=== PATIENT | male | born 1955 | race Caucasian/White ===

== ENCOUNTER → 2021-05-25 | Outpatient (CLI) | payer OTHER ==
--- NOTE | 2021-05-25 14:17 | XR ---
EXAMINATION TYPE: XR hand complete LT DATE OF EXAM: 05/25/2021 COMPARISON: None HISTORY: Screw and into plantar surface fourth fifth metacarpal joints TECHNIQUE: 3 view left hand FINDINGS: No acute fractures are evident. Soft tissues appear normal. No radiopaque foreign bodies ar e evident. Joint spaces are preserved. Follow up exams can be performed 7-10 days from acute trauma f or continued pain. IMPRESSION: 1. No acute osseous abnormality. 2. No radiopaque foreign bodies.
== END | disposition home or self-care (01) ==
LOC: RADXRMAIN 14:00
PROVIDERS: ATTEND Emergency Medicine
DX: Z03.89 Encounter for observation for other suspected diseases and conditions ruled out (principal)

== ENCOUNTER → 2025-04-27 | Outpatient (CLI) | payer BC ==
--- NOTE | 2025-04-27 11:29 | XR ---
EXAMINATION TYPE: XR chest 2V DATE OF EXAM: 04/27/2025 11:09 AM COMPARISON: Chest radiographs from 11/19/2012. CLINICAL INDICATION: Male, 69 years old with history of Z01.818 PRE SURGICAL; pain TECHNIQUE: XR chest 2V Frontal and lateral views of the chest. FINDINGS: Lungs/Pleura: There is no evidence of pleural effusion, focal consolidation, or pneumothorax. Pulmonary vascularity: Unremarkable. Heart/mediastinum: Cardiomediastinal silhouette is unremarkable. Musculoskeletal: No acute osseous pathology. IMPRESSION: No acute cardiopulmonary disease/process. [facility], , 04/27/2025 11:27 AM
[2025-04-27 15:27] LABS: ALT 19 U/L (10-49); AST 20 U/L (14-35); Albumin 4.5 g/dL (3.8-4.9); Albumin/Globulin Ratio 2.25 Ratio (1.60-3.17); Alkaline Phosphatase 93 U/L (41-126); Anion Gap 12.60 mmol/L (4.00-12.00); BUN/Creat Ratio 11.00 Ratio (12.00-20.00); Blood Urea Nitrogen 11.0 mg/dL (9.0-27.0); Calcium 9.5 mg/dL (8.7-10.3); Carbon Dioxide 25.4 mmol/L (21.6-31.8); Chloride 104 mmol/L (96-109); Cholesterol 215.00 mg/dL (0.00-200.00); Globulin 2.0 g/dL (1.6-3.3); Glucose 108 mg/dL (70-110); HDL Cholesterol 45.00 mg/dL (40.00-60.00); LDL Cholesterol,Calculated 132.8 mg/dL (0.0-131.0); Potassium 4.7 mmol/L (3.5-5.5); Prostate Specific Antigen 6.18 ng/mL (0.000-4.500); Sodium 142 mmol/L (135-145); Total Protein 6.5 g/dL (6.2-8.2); Triglycerides 186.00 mg/dL (0.00-149.00); VLDL Calculation 37.20 mg/dL (5.00-40.00)
[2025-04-27 16:05] LABS: Basophils # (A) 0.10 X 10*3/uL (0.00-0.10); Basophils % (A) 1.1 %; Eosinophils # (A) 0.27 X 10*3/uL (0.04-0.35); Eosinophils % (A) 3.0 %; HCT 45.5 % (39.6-50.0); HGB 14.9 g/dL (13.0-17.0); Immature Grans, Automated 0.70 %; Lymphocytes # (A) 2.38 X 10*3/uL (0.90-5.00); Lymphocytes % (A) 26.9 %; MCH 30.9 pg (27.0-32.0); MCHC 32.7 g/dL (32.0-37.0); MCV 94.4 FL (80.0-97.0); Monocytes # (A) 0.79 X 10*3/uL (0.20-1.00); Monocytes % (A) 8.9 %; NRBC Per 100 WBC 0 X 10*3/uL (0.00-0.01); Neutrophils # (A) 5.26 X 10*3/uL (1.80-7.70); Neutrophils % (A) 59.4 %; Platelet Count 340 X 10*3/uL (140-440); RBC 4.82 X 10*6/uL (4.40-5.60); RDW 12.2 % (11.5-14.5); WBC 8.86 X 10*3/uL (4.50-10.00)
[2025-04-27 16:24] LABS: Bilirubin,Urine Negative (Negative); Blood,Urine Negative (Negative); Color,Urine Yellow (Yellow); Ketones,Urine Trace (Negative); Nitrite,Urine Negative (Negative); PH, Urine 7.5; Specific Gravity,Urine 1.019 (1.001-1.030); Urobilinogen,Urine 1.0 E.U./DL
[2025-04-27 16:30] LABS: Bacteria,Urine None Seen (None Seen)
== END | disposition home or self-care (01) ==
LOC: LABWHC1 10:11
PROVIDERS: ATTEND Urology
DX: Z01.818 Encounter for other preprocedural examination (principal); D41.01 Neoplasm of uncertain behavior of right kidney; I49.8 Other specified cardiac arrhythmias; N40.0 Benign prostatic hyperplasia without lower urinary tract symptoms; R73.9 Hyperglycemia, unspecified
CPT/HCPCS: 36415; 71046; 80053; 80061; 81001; 83036; 84153; 84443; 85025; 87086; 93005

== ENCOUNTER → 2025-05-01 | Outpatient (CLI) | payer BC, MEDICARE | END | disposition home or self-care (01) | LOC: LABPAT 10:29 | PROVIDERS: ATTEND Urology | DX: Z01.812 Encounter for preprocedural laboratory examination (principal) | CPT/HCPCS: 86850; 86900; 86901 ==

== ENCOUNTER 2025-05-07 10:09 | Day surgery (SDC) | payer MEDICARE ==
[2025-04-30 15:57] VITALS: BMI 31.9
--- NOTE | 2025-05-07 07:58 | P.HPIHPCON ---
History of Present Illness H&P Date: 05/07/25 Chief Complaint: Right renal mass This is a 69-year-old male with incidental finding of a 3.5 cm right-sided midpole renal mass. Option of robotic partial nephrectomy versus cryoablation versus observation was discussed with him in details. He agreed to proceed with a robotic partial nephrectomy. He is aware of the risk which include but not limited to bleeding, infection, injury to nearby organs. Discussed also the potential of converting to radical nephrectomy. Discussed with him that if this does occur then he is at a higher risk of needing hemodialysis in the short and long-term. Risk of cancer recurrence and the need for additional treatment was also discussed. He understood all the risk and agreed to proceed Consent for Procedure: I have explained the operation/procedure to the patient, including the risks, benefits, side effects, alternative therapies (including not receiving the proposed treatment or service), the likelihood of the patient achieving his/her goals, and potential recuperation problems for the procedure/sedation/analgesia, as well as any blood products, if indicated. I also explained to the patient the risks, benefits and side effects of the alternatives, as well as the risks related to not receiving the proposed procedure, care, treatment, or services. Past Medical History Past Medical History: Asthma, Hyperlipidemia, Hypertension, Prostate Disorder, Sleep Apnea/CPAP/BIPAP Additional Past Medical History / Comment(s): Allergies. Hx vertigo. Lott's Esophagus. "Cholesterol levels good now." Enlarged prostate. No device use for sleep apnea since septal/nasal surgery. History of Any Multi-Drug Resistant Organisms: None Reported Past Surgical History: Cholecystectomy, Hernia Repair, Orthopedic Surgery, Tonsillectomy Additional Past Surgical History / Comment(s): Adina Fundoplication, nasal septum surgery, bilateral cataract surgery, right knee arthroscopy X2. Past Anesthesia/Blood Transfusion Reactions: No Reported Reaction Additional Past Anesthesia/Blood Transfusion Reaction / Comment(s): Spouse states "Takes a lot of anesthesia to keep him out." Hx Vertigo. Smoking Status: Current every day smoker - Past Family History Father Family Medical History: Cancer Additional Family Medical History / Comment(s): Prostate cancer. Mother Family Medical History: Cancer Additional Family Medical History / Comment(s): Melanoma and colon cancer. Medications and Allergies Home Medications Medication Instructions Recorded Confirmed Type ALPRAZolam [Xanax] 0.5 mg PO BID PRN 07/10/25 07/10/25 History Albuterol Sulfate [Proair 2 puff INHALATION Q4-6H PRN 04/30/25 04/30/25 History Digihaler] Amlodipine Besylate/Valsartan 1 each PO BID 04/30/25 04/30/25 History [Amlodipine Besylate/Valsartan 5-320 mg] Budesonide/Formoterol Fumarate 1 puff INHALATION BID 04/30/25 04/30/25 History [Breyna 160-4.5 Mcg Inhaler] Cetirizine HCl [Zyrtec] 10 mg PO HS 04/30/25 04/30/25 History Meclizine [Antivert] 25 mg PO TID PRN 04/30/25 04/30/25 History Omeprazole 20 mg PO QAM 04/30/25 04/30/25 History buPROPion HCL [buPROPion HCL SR] 150 mg PO BID 04/30/25 04/30/25 History tadalafiL 5 mg PO HS 04/30/25 04/30/25 History Allergies Allergy/AdvReac Type Severity Reaction Status Date / Time bee venom protein (honey bee) Allergy Anaphylaxis Verified 04/30/25 15:24 Milk Containing Products Allergy Sinus Verified 04/30/25 15:24 (Dairy) problems [Dairy] Penicillins Allergy Rash/Hives Verified 04/30/25 15:24 Surgical - Exam - General no distress, no pain - Eyes normal ocular movement, no pale - ENT normal nares, normal mucosa - Respiratory normal expansion, normal respiratory effort - Abdomen Abdomen: soft, non tender, no distended - Psychiatric oriented to time, oriented to person, oriented to place Assessment and Plan Assessment: OR for robotic partial nephrectomy on the right side possible radical
[2025-05-07] MEDS: ONDANSETRON 4 MG/2 ML VIAL IVP ONE (11:08)
[2025-05-07] MEDS: DEXAMETHASONE SOD PHOSPHATE 4 MG/ML 1 ML VIAL IV ONE (11:08)
[2025-05-07] MEDS: LACTATED RINGERS 1,000 ML IV SCH (11:08)
[2025-05-07] MEDS: IV FLUID CONTINUATION 1,000 ML IV ONE ×2 (11:26→11:27)
[2025-05-07] MEDS: MIDAZOLAM 2 MG/2 ML VIAL IV ONE (11:40)
[2025-05-07] MEDS: HEPARIN SODIUM,PORCINE 5,000 UNIT/ML 1 ML VIAL SQ PRN (11:45)
[2025-05-07] MEDS: fentaNYL (PF) 50 MCG/ML 2 ML AMP IVP PRN (11:51)
[2025-05-07] MEDS ORDERED: GLYCOPYRROLATE 0.2 MG/ML 2 ML VIAL ONE (12:57)
[2025-05-07] MEDS ORDERED: ROPIVACAINE 5 MG/ML 30 ML VIAL ONE (12:57)
[2025-05-07] MEDS ORDERED: MANNITOL 25% 12.5 GM/50 ML VIAL ONE (12:57)
[2025-05-07] MEDS ORDERED: ePHEDrine 50 MG/ML 1 ML VIAL ONE (12:57)
[2025-05-07] MEDS ORDERED: DEXAMETHASONE SOD PHOSPHATE 4 MG/ML 1 ML VIAL ONE (12:57)
[2025-05-07] MEDS ORDERED: PROPOFOL 10 MG/ML 20 ML VIAL IV ONE (12:57)
[2025-05-07] MEDS ORDERED: KETAMINE HCL IN 0.9 % NACL 50 MG/5 ML SYRINGE ONE (12:57)
[2025-05-07] MEDS ORDERED: LIDOCAINE 1% INJ 10MG/ML (20 ML MDV) ONE (12:57)
[2025-05-07] MEDS ORDERED: PHENYLEPHRINE 10 MG/ML VIAL ONE (12:57)
[2025-05-07] MEDS ORDERED: NEOSTIGMINE 1 MG/ML 10 ML VIAL ONE (12:57)
[2025-05-07] MEDS ORDERED: SODIUM CHLORIDE 0.9% (PF) 10 ML VIAL ONE (12:57)
[2025-05-07] MEDS ORDERED: fentaNYL (PF) 50 MCG/ML 2 ML AMP ONE (12:57)
[2025-05-07] MEDS ORDERED: MIDAZOLAM 2 MG/2 ML VIAL ONE (12:57)
[2025-05-07] MEDS ORDERED: ROCURONIUM 10 MG/ML (5 ML VIAL) IV ONE (12:57)
[2025-05-07] MEDS ORDERED: HYDROmorphone (PF) 1 MG/ML ONE (12:57)
--- NOTE | 2025-05-07 13:02 | P.ANPRN ---
Procedure Note - Anesthesia - Nerve Block Performed Right Erector Spinae Single Time Out Performed: Yes ([id number]) Date of Procedure: 05/07/25 Procedure Start Time: 11:41 Procedure Stop Time: 11:46 Location of Patient: PreOp Indication: Acute Post-Operative Pain, Requested by Surgeon Sedation Type: Sedate with meaningful contact maintained Preparation: Sterile Prep Position: Sitting Catheter: None Needle Types: Pajunk Needle Gauge: 21 Ultrasound used to visualize needle placement: Yes Ultrasound used to observe medication spread: Yes Injectate: 0.5% Ropivacaine (see comment for volume) (25 mL of block solution containing 14 mL of 0.5% ropivacaine mixed with 10 mL of preservative-free normal saline, and 4 mg of dexamethasone) Blood Aspirated: No Pain Paresthesia on Injection Noted: No Resistance on Injection: Normal Image Stored and Saved: Yes Events: Uneventful and Well Tolerated
[2025-05-07] MEDS ORDERED: ALPRAZolam 0.5 MG TAB PO PRN (13:13)
[2025-05-07] MEDS ORDERED: ALBUTEROL NEBULIZED 2.5 MG/3 ML INHALATION PRN (13:13)
[2025-05-07] MEDS ORDERED: MECLIZINE 25 MG TAB PO PRN (13:13)
[2025-05-07] MEDS ORDERED: ONDANSETRON 4 MG/2 ML VIAL IVP PRN (13:14)
[2025-05-07] MEDS ORDERED: HYDROmorphone 1 MG/ML 1 ML SYRINGE IVP PRN (13:14)
[2025-05-07] MEDS: LACTATED RINGERS 1,000 ML IV ONE ×2 (14:05→16:29)
[2025-05-07] MEDS: BUPIVACAINE (PF) 0.5% 30 ML VIAL SQ ONE ×2 (14:14→18:22)
--- NOTE | 2025-05-07 18:31 | P.OP ---
Date of Procedure: 05/07/25 Preoperative Diagnosis: Right renal mass Postoperative Diagnosis: Same Procedure(s) Performed: Robotic assisted laparoscopic partial nephrectomy on the right Implants: None Anesthesia: LILLYA Surgeon: Isaias Gallegos Estimated Blood Loss (ml): 200 Pathology: other (Right renal mass) Condition: stable Disposition: PACU Indications for Procedure: This is a 69-year-old male with incidental finding of a 3.5 cm right-sided midpole renal mass. Option of robotic partial nephrectomy versus cryoablation versus observation was discussed with him in details. He agreed to proceed with a robotic partial nephrectomy. He is aware of the risk which include but not limited to bleeding, infection, injury to nearby organs. Discussed also the potential of converting to radical nephrectomy. Discussed with him that if this does occur then he is at a higher risk of needing hemodialysis in the short and long-term. Risk of cancer recurrence and the need for additional treatment was also discussed. He understood all the risk and agreed to proceed Description of Procedure: The patient was taken to the operating room . General anesthesia was induced. He was prepped and draped in sterile fashion, and was placed in modified flank posi tion . All pressure points were padded. The abdominal insufflation was achieved with the Veress needle. A 8 mm camera port was placed. Robotic trocars and furniture removalist's assistant ports were placed under direct vision. a 5 mm liver retractor was placed. . The robot was docked into place. The colon was mobilized medially by incising along the white line of Toldt. Next the duodenum was kocherized. Once the bowel, was mobilized. At this time the gonadal vessel was visualized. Once the gonadal vessel and ureter was visualized , next after the psoas plane was developed the ureter and gonadal vessel was retracted anteriorly off the psoas muscle. Dissection proceeded cranially towards the renal hilum.The renal vessels were dissected. Patient had a small lower pole renal vein, I did have to ligate the vein using robotic clip audit practice intern as I was unable to further dissect the hilum without doing that. The renal artery and the vein was dissected in preparation for clamping. Next attention was carried to the tumor, the area around the tumor patient had significant amount of fat around the kidney, in addition was fairly toxic fat as it was fairly adherent to the renal capsule, I very slowly was able to dissect the fat off, more than 2 hours were spent in order to partially defat the kidney to be able to visualize the tumor and the margins around it. Manitol was administered. The renal artery was clamped using 2 bulldogs. After clamping the renal artery the tumor was excised sharply with adequate margin, and cautery was used in areas of bleeding. Of note the fat over the tumor was sent as a separate specimen fat over tumor. Next the defect was closed in 2 layers using 3-0V lock for the inner layer, 20V lock in interrupted fashion for the outer layer. Sliding clip technique was used. Next the clamps were removed, there was no evidence of bleeding from the defect. Hemostatic agents were applied The kidney tumor was placed in an Endo Catch bag. Gerota's fascia was closed over the tumor defect. A WENDIE drain was placed through the lower robotic trocor incision. The robot was then de-docked and the specimen was then removed by extending the furniture removalist's assistant port. Fascia was closed with one layer using 2-0 Vicryl. Skin was closed with subcuticular sutures and dermabond. The patient was awoken from general anesthesia in stable condition. all counts were correct Please refer to the final pathology report for final diagnosis
[2025-05-07] MEDS: HYDROmorphone 0.5 MG/0.5 ML SYRINGE IVP PRN (20:01)
[2025-05-07] MEDS: SYMBICORT 160-4.5 MCG INHALER INHALATION SCH (20:08)
[2025-05-07 20:32] VITALS: RESP 16
[2025-05-07] MEDS: KETOROLAC 15 MG/ML 1 ML VIAL IVP SCH (20:36)
[2025-05-07] MEDS ORDERED: amLODIPine 5 MG TAB PO SCH (21:00)
[2025-05-07] MEDS: D5-0.45% NACL WITH KCL 20MEQ/L 1,000 ML IV SCH (21:58)
[2025-05-07] MEDS: amLODIPine 5 MG TAB PO SCH (21:59)
[2025-05-07] MEDS: LORATADINE 10 MG TAB PO SCH (21:59)
[2025-05-07] MEDS: buPROPion SR 150 MG TABLET.ER PO SCH (21:59)
[2025-05-07] MEDS: HYDROcodone/APAP 5-325MG 1 EACH TAB PO PRN (21:59)
[2025-05-07] MEDS: VALSARTAN 160 MG TAB PO SCH (22:33)
[2025-05-07] MEDS ORDERED: ZINC OXIDE PASTE (Z-GUARD) 1 APPLIC TOPICAL PRN (23:42)
[2025-05-08 02:10] VITALS: TEMP 97.7
[2025-05-08 07:34] VITALS: BP 114/73; PULSE 85
[2025-05-08 07:57] LABS: Basophils # (A) 0.02 X 10*3/uL (0.00-0.10); Basophils % (A) 0.1 %; Eosinophils # (A) 0 X 10*3/uL (0.04-0.35); Eosinophils % (A) 0 %; HCT 34.3 % (39.6-50.0); HGB 11.3 g/dL (13.0-17.0); Immature Grans, Automated 0.70 %; Lymphocytes # (A) 1.14 X 10*3/uL (0.90-5.00); Lymphocytes % (A) 7.2 %; MCH 30.9 pg (27.0-32.0); MCHC 32.9 g/dL (32.0-37.0); MCV 93.7 FL (80.0-97.0); Monocytes # (A) 1.38 X 10*3/uL (0.20-1.00); Monocytes % (A) 8.8 %; NRBC Per 100 WBC 0 X 10*3/uL (0.00-0.01); Neutrophils # (A) 13.10 X 10*3/uL (1.80-7.70); Neutrophils % (A) 83.2 %; Platelet Count 261 X 10*3/uL (140-440); RBC 3.66 X 10*6/uL (4.40-5.60); RDW 12.4 % (11.5-14.5); WBC 15.75 X 10*3/uL (4.50-10.00)
[2025-05-08 08:15] LABS: Anion Gap 10.50 mmol/L (4.00-12.00); BUN/Creat Ratio 14.50 Ratio (12.00-20.00); Blood Urea Nitrogen 17.4 mg/dL (9.0-27.0); Calcium 8.5 mg/dL (8.7-10.3); Carbon Dioxide 23.5 mmol/L (21.6-31.8); Chloride 104 mmol/L (96-109); Glucose 137 mg/dL (70-110); Potassium 4.6 mmol/L (3.5-5.5); Sodium 138 mmol/L (135-145)
--- NOTE | 2025-05-08 08:59 | P.DS ---
Providers Attending physician: Isaias Gallegos MD Primary care physician: Enoch [facility] Course: This is a 69-year-old male with history of right-sided renal mass. She underwent a robotic right-sided partial nephrectomy on May 07. Please see op note dated May 07 for surgery details. Patient was admitted to the hospital postoperatively. Arevalo catheter and WENDIE drain were removed on postop day #1. She was discharged home on postop day #1, at time of discharge she was toleratin g a diet, ambulating, pain was controlled Plan - Discharge Summary Discharge Rx Participant: No New Discharge Prescriptions: No Action Meclizine [Antivert] 25 mg PO TID PRN PRN Reason: Vertigo buPROPion HCL [buPROPion HCL SR] 150 mg PO BID Budesonide/Formoterol Fumarate [Breyna 160-4.5 Mcg Inhaler] 1 puff INHALATION BID tadalafiL 5 mg PO HS Omeprazole 20 mg PO QAM Cetirizine HCl [Zyrtec] 10 mg PO HS Amlodipine Besylate/Valsartan [Amlodipine Besylate/Valsartan 5-320 mg] 1 each PO BID Albuterol Sulfate [Proair Digihaler] 2 puff INHALATION Q4-6H PRN PRN Reason: Shortness Of Breath ALPRAZolam [Xanax] 0.5 mg PO BID PRN PRN Reason: Anxiety Discharge Medication List ALPRAZolam [Xanax] 0.5 mg PO BID PRN 04/30/25 [History] Albuterol Sulfate [Proair Digihaler] 2 puff INHALATION Q4-6H PRN 04/30/25 [History] Amlodipine Besylate/Valsartan [Amlodipine Besylate/Valsartan 5-320 mg] 1 each PO BID 04/30/25 [History] Budesonide/Formoterol Fumarate [Breyna 160-4.5 Mcg Inhaler] 1 puff INHALATION BID 04/30/25 [History] Cetirizine HCl [Zyrtec] 10 mg PO HS 04/30/25 [History] Meclizine [Antivert] 25 mg PO TID PRN 04/30/25 [History] Omeprazole 20 mg PO QAM 04/30/25 [History] buPROPion HCL [buPROPion HCL SR] 150 mg PO BID 04/30/25 [History] tadalafiL 5 mg PO HS 04/30/25 [History]
[2025-05-08] MEDS: PANTOPRAZOLE 40 MG TABLET PO SCH (09:00)
== END 2025-05-08 13:12 | disposition home or self-care (01) ==
LOC: OR 10:09 → 4SSUR 18:47 → OR 05-08 13:12
PROVIDERS: ATTEND Urology
DX: C64.1 Malignant neoplasm of right kidney, except renal pelvis (principal); E78.5 Hyperlipidemia, unspecified; G89.18 Other acute postprocedural pain; I10 Essential (primary) hypertension; J45.909 Unspecified asthma, uncomplicated; N40.0 Benign prostatic hyperplasia without lower urinary tract symptoms; G47.33 Obstructive sleep apnea (adult) (pediatric); F17.200 Nicotine dependence, unspecified, uncomplicated; Z79.899 Other long term (current) drug therapy; Z80.0 Family history of malignant neoplasm of digestive organs; Z87.19 Personal history of other diseases of the digestive system; Z88.0 Allergy status to penicillin; Z90.49 Acquired absence of other specified parts of digestive tract; Z91.030 Bee allergy status; Z99.89 Dependence on other enabling machines and devices; Z91.011 Allergy to milk products; Z79.51 Long term (current) use of inhaled steroids
CPT/HCPCS: 50543; 94640; 80048; 85025; 88307; C1762; J2250; J1644; J1100; J2710; S0106 ×2; J0690; J2405; J2003; J2150; J3010; J1171 ×2; J2795; J1885 ×2; J2704; J2371; J0665; J1596